=== PATIENT | female | born 1990 | race Caucasian/White ===

== ENCOUNTER 2023-04-14 23:25 | Emergency (ER) | payer OTHER ==
[~2023-04-14] VITALS: Ht 170.2 cm; Wt 82.0 kg
[2023-04-14 23:28] VITALS: BP 128/78; PULSE 96; RESP 19; TEMP 98.3
[2023-04-15 00:03] LABS: COVID AG,FIA SOURCE NASAL SWAB
[2023-04-15 00:29] LABS: INFLUENZA TYPE A NEGATIVE FOR TYPE A (NEGATIVE); INFLUENZA TYPE B NEGATIVE FOR TYPE B (NEGATIVE); SARS-COV2 (COVID) ANTIGEN,FIA Negative (Negative)
== END 2023-04-15 00:16 | disposition left against medical advice (07) ==
LOC: EMS 23:25
DX: R10.9 Unspecified abdominal pain (principal); Z20.822 Contact with and (suspected) exposure to COVID-19; Z53.21 Procedure and treatment not carried out due to patient leaving prior to being seen by health care provider
CPT/HCPCS: 87804; 99281; Z7502